=== PATIENT | female | born 1985 | race Caucasian/White ===

== ENCOUNTER 2019-04-14 15:05 | Emergency (ER) | payer OTHER ==
[2019-04-14] MEDS ORDERED: IPRATROPIUM-ALBUTEROL 3 ML NEB INHALATION STA (15:29)
--- NOTE | 2019-04-14 15:51 | XR ---
EXAMINATION TYPE: XR chest 2V DATE OF EXAM: 04/14/2019 COMPARISON: NONE TECHNIQUE: PA and lateral views submitted. HISTORY: Cough FINDINGS: The lungs are clear and there is no pneumothorax, pleural effusion, or focal pneumonia. Hypertrophi c and degenerative change of the spine. No overt failure. Heart size normal. Curvature the spine note d. Mild superior endplate deformity midthoracic spine likely chronic. Hyperinflation suggests COPD. IMPRESSION: 1. No acute process.
--- NOTE | 2019-04-14 15:59 | ED ---
General Adult HPI - General Chief complaint: Upper Respiratory Infection Stated complaint: Sob Time Seen by Provider: 04/14/19 15:12 Source: patient, RN notes reviewed Mode of arrival: ambulatory Limitations: no limitations - History of Present Illness Initial comments: 33-year-old female with a past medical history of asthma as an [facility] emergency department for a chief complaint of cough. Patient has had a cough and congestion for a few weeks now. Patient did take Augmentin and a steroid but this was already completed. This was through urgent care. She return to urgent care she was not improving and started azithromycin and an inhaler. Patient has continued to smoke. Patient does have a nebulizer at home and has been prescribed albuterol treatments but has not used these. She denies any fevers. He fell when she gets into a coughing fit she does have some shortness of breath but otherwise unremarkable. Patient has no other complaints at this time including chest pain, abdominal pain, nausea or vomiting, headache, or visual changes. - Related Data Previous Rx's Medication Instructions Recorded Benzonatate [Tessalon Perles] 200 mg PO Q8H PRN #20 capsule 04/14/19 predniSONE 50 mg PO DAILY #5 tablet 04/14/19 Allergies Allergy/AdvReac Type Severity Reaction Status Date / Time No Known Allergies Allergy Verified 04/14/19 15:06 Review of Systems ROS Statement: Those systems with pertinent positive or pertinent negative responses have been documented in the HPI. ROS Other: All systems not noted in ROS Statement are negative. Past Medical History Past Medical History: Asthma History of Any Multi-Drug Resistant Organisms: None Reported Past Surgical History: No Surgical Hx Reported Past Psychological History: Anxiety, Depression Smoking Status: Current every day smoker Past Alcohol Use History: None Reported Past Drug Use History: None Reported General Exam Limitations: no limitations General appearance: alert, in no apparent distress Head exam: Present: atraumatic, normocephalic, normal inspection Eye exam: Present: normal appearance, PERRL, EOMI. Absent: scleral icterus, conjunctival injection, periorbital swelling ENT exam: Present: normal exam, normal oropharynx, mucous membranes moist, TM's normal bilaterally, normal external ear exam Neck exam: Present: normal inspection, full ROM. Absent: tenderness, meningismus, lymphadenopathy Respiratory exam: Present: wheezes (Mild wheezing noted bilaterally) Cardiovascular Exam: Present: regular rate, normal rhythm, normal heart sounds. Absent: systolic murmur, diastolic murmur, rubs, gallop, clicks GI/Abdominal exam: Present: soft, normal bowel sounds. Absent: distended, tenderness, guarding, rebound, rigid Neurological exam: Present: alert Psychiatric exam: Present: normal affect, normal mood Course Vital Signs 04/14/19 04/14/19 04/14/19 15:07 16:00 16:14 Temperature 97.4 F L Pulse Rate 103 H 76 Respiratory 18 19 Rate Blood Pressure 118/66 O2 Sat by Pulse 99 Oximetry 04/14/19 16:30 Temperature Pulse Rate 78 Respiratory Rate Blood Pressure O2 Sat by Pulse Oximetry Medical Decision Making - Medical Decision Making vitals are stable. Patient is 99% on room air. She is afebrile. She is noted to have a cough and congestion. Patient is on second day of azithromycin. Patient has finished steroids several days ago. Patient has not been taking her albuterol nebulizer but has been using inhaler. Chest x-ray was obtained here which shows no acute process. She does likely have a bronchitis. She was given a breathing treatment here and did have significant improvement in aeration. Patient will be restarted on steroid and will continue azithromycin. She has albuterol and nebulizer home that she has not used yet but will start using. I discussed smoking cessation for greater than 3 minutes. Discussed that if patient has any worsening symptoms or to see her she needs to return to the emergency department. Disposition Clinical Impression: Upper respiratory infection Disposition: HOME SELF-CARE Condition: Good Instructions (If sedation given, give patient instructions): Upper Respiratory Infection (ED) Additional Instructions: Take steroid and Tessalon Perles as directed. These were prescribed to Eva on . Continue to take azithromycin. Use nebulizer every 4-6 hours. Try to quit smoking as best he can. Use inhaler as needed. Follow-up with primary care in 1-2 days. Return if you have any worsening symptoms or develops fevers. Prescriptions: predniSONE 50 mg PO DAILY #5 tablet Benzonatate [Tessalon Perles] 200 mg PO Q8H PRN #20 capsule PRN Reason: Cough Is patient prescribed a controlled substance at d/c from ED?: No Referrals: Debra Noyola MD [REFERRING] - 1-2 days Time of Disposition: 16:50
[2019-04-14 16:30] VITALS: PULSE 78
[2019-04-14 17:20] VITALS: BP 120/74; RESP 18; TEMP 98
== END 2019-04-14 17:02 | disposition home or self-care (01) ==
LOC: EC 15:05
DX: J06.9 Acute upper respiratory infection, unspecified (principal); F17.200 Nicotine dependence, unspecified, uncomplicated; Z71.6 Tobacco abuse counseling
CPT/HCPCS: 71046; 94640; 99285

== ENCOUNTER → 2020-08-07 | Outpatient (CLI) | payer OTHER ==
[2020-08-07 23:55] LABS: Basophils # (A) 0.03 X 10*3/uL (0.00-0.10); Basophils % (A) 0.5 %; Eosinophils # (A) 0.12 X 10*3/uL (0.04-0.35); Eosinophils % (A) 2.1 %; HCT 43.6 % (37.2-46.3); HGB 14.2 g/dL (12.0-15.0); Lymphocytes # (A) 1.87 X 10*3/uL (0.90-5.00); Lymphocytes % (A) 33.5 %; MCH 28.7 pg (27.0-32.0); MCHC 32.6 g/dL (32.0-37.0); MCV 88.1 fL (80.0-97.0); Mean Platelet Volume 10.9 fL (9.5-12.2); Monocytes # (A) 0.39 X 10*3/uL (0.20-1.00); Neutrophils # (A) 3.17 X 10*3/uL (1.80-7.70); Neutrophils % (A) 56.7 %; Platelet Count 281 X 10*3/uL (140-440); RBC 4.95 X 10*6/uL (4.10-5.20); RDW 12.6 % (11.5-14.5); WBC 5.59 X 10*3/uL (4.50-10.00)
[2020-08-08 04:59] LABS: African American GFR (CKD) 130.1 (60.0-200.0); Albumin 4.1 g/dL (3.80-4.90); Albumin/Globulin Ratio 2.16 (1.60-3.17); Anion Gap 8.9 mmol/L (4.00-12.00); BUN/Creat Ratio 12.86 Ratio (12.00-20.00); Calcium 9.2 mg/dL (8.7-10.3); Carbon Dioxide 23.1 mmol/L (21.6-31.8); Chol/HDL Ratio 3.55; Globulin 1.9 g/dL (1.6-3.3); LDL Cholesterol,Calculated 156.8 mg/dL (0.0-131.0); Non-African American GFR(CKD) 112.3 (60.0-200.0); Potassium 4.1 mmol/L (3.5-5.5); Total Bilirubin 0.4 mg/dL (0.3-1.2); VLDL Calculation 24.2 mg/dL (5.00-40.00)
== END | disposition home or self-care (01) ==
LOC: LABWHC1 15:55
PROVIDERS: ATTEND Nurse Practitioner Adult Health
DX: Z00.00 Encounter for general adult medical examination without abnormal findings (principal); F90.1 Attention-deficit hyperactivity disorder, predominantly hyperactive type; E66.9 Obesity, unspecified
CPT/HCPCS: 36415; 80053; 80061; 80175; 82306; 84443; 85025

== ENCOUNTER → 2024-04-03 | Outpatient (CLI) | payer OTHER ==
--- NOTE | 2024-04-03 14:56 | XR ---
EXAMINATION TYPE: XR hand complete LT DATE OF EXAM: 04/03/2024 COMPARISON: NONE CLINICAL INDICATION: Female, 38 years old with history of S63.502A M79.642 R20.9; TECHNIQUE: Three views are submitted. FINDINGS: The osseous structures are intact. The joint spaces are preserved and there is no acute fracture or dislocation. IMPRESSION: 1. No definite acute fracture or dislocation if symptoms persist, follow-up study in 7 to 10 days wo uld be suggested [facility], , 04/03/2024 2:53 PM
--- NOTE | 2024-04-03 14:57 | XR ---
EXAMINATION TYPE: XR wrist complete LT DATE OF EXAM: 04/03/2024 COMPARISON: NONE CLINICAL INDICATION: Female, 38 years old with history of S63.502A M79.642 R20.9; TECHNIQUE: Four views submitted. FINDINGS: The osseous structures are intact. The joint spaces are preserved and there is no acute fracture or dislocation. IMPRESSION: 1. No definite acute fracture or dislocation if symptoms persist, follow-up study in 7 to 10 days wo uld be suggested [facility], , 04/03/2024 2:55 PM
== END | disposition home or self-care (01) ==
LOC: RADXRMAIN 14:18
PROVIDERS: ATTEND Emergency Medicine
DX: S63.502A Unspecified sprain of left wrist, initial encounter (principal); M79.642 Pain in left hand; R20.9 Unspecified disturbances of skin sensation

== ENCOUNTER → 2024-04-17 | Outpatient (CLI) | payer OTHER ==
--- NOTE | 2024-04-17 17:12 | XR ---
EXAMINATION TYPE: XR wrist complete LT DATE OF EXAM: 04/17/2024 4:59 PM COMPARISON: None. CLINICAL INDICATION: Female, 38 years old with history of S63.502D UNSPECIFIED SPRAIN OF LEFT WRIST, SUBSEQU, pain TECHNIQUE: XR wrist complete LT views were obtained FINDINGS: There is no acute fracture/dislocation evident. The joint spaces appear within normal limi ts. The overlying soft tissue appears unremarkable. IMPRESSION: No acute fracture or dislocation seen. [facility], , 04/17/2024 5:09 PM
== END | disposition home or self-care (01) ==
LOC: RADXRMAIN 16:23
PROVIDERS: ATTEND Emergency Medicine
DX: S63.502D Unspecified sprain of left wrist, subsequent encounter (principal)

== ENCOUNTER → 2024-10-02 | Outpatient (CLI) | payer OTHER ==
[2024-10-02 15:46] LABS: T4, Free (Free Thyroxine) 1.09 ng/dL (0.80-1.80)
[2024-10-02 18:19] LABS: Thyroid Peroxidase Antibodies 9.4 U/mL (0.0-33.0)
== END | disposition home or self-care (01) ==
LOC: LABWHC1 12:15
PROVIDERS: ATTEND Family Medicine
DX: N91.2 Amenorrhea, unspecified (principal)
CPT/HCPCS: 36415; 84439; 84443; 86376; 86800

== ENCOUNTER → 2024-12-25 | Outpatient (CLI) | payer OTHER ==
[2024-12-25 16:21] LABS: Follicle Stimulating Hormone 25.4 mIU/mL
== END | disposition home or self-care (01) ==
LOC: LABWHC1 12:22
PROVIDERS: ATTEND Nurse Practitioner Family
DX: N91.2 Amenorrhea, unspecified (principal)
CPT/HCPCS: 36415; 82024; 83001; 83002; 84146; 84305